=== PATIENT | male | born 1965 | race Caucasian/White ===

== ENCOUNTER → 2016-10-20 | Outpatient (CLI) | payer BC ==
[~2016-10-20] VITALS: Ht 182.9 cm; Wt 136.1 kg
[~2016-10-20] MED LIST: NS 1,000 ML IV ONE; PROPOFOL 200 MG/20 ML VIAL As Ordered ONE
--- NOTE | 2016-10-20 10:37 | ROOR ---
Patient Name: Davotne Edwards Procedure Date: 10/20/2016 10:10 AM Date of : 1965 Age: 51 Room: [facility] Gender: Male Note Status: Finalized Procedure: Total Colonoscopy to cecum + Bx. Indications: Screening for colorectal malignant neoplasm Providers: Zeeshan Vuong MD Referring MD: Kelsey Serra NP Requesting Provider: Medicines: Monitored Anesthesia Care Complications: No immediate complications. Procedure: Pre-Anesthesia Assessment: - The heart rate, respiratory rate, oxygen saturations, blood pressure, adequacy of pulmonary ventilation, and response to care were monitored throughout the procedure. The Colonoscope was introduced through the anus and advanced to the cecum, identified by appendiceal orifice and ileocecal valve. The colonoscopy was performed without difficulty. The patient tolerated the procedure well. The quality of the bowel preparation was excellent. Findings: The perianal and digital rectal examinations were normal. Non-bleeding internal hemorrhoids were found during retroflexion. The hemorrhoids were small and Grade I (internal hemorrhoids that do not prolapse). Diffuse mild inflammation characterized by congestion (edema), erosions, granularity, loss of vascularity, scarring and aphthous ulcerations was found in the entire colon. Biopsies were taken with a cold forceps for histology. The exam was otherwise without abnormality on direct and retroflexion views. Impression: - Non-bleeding internal hemorrhoids. - Diffuse mild inflammation was found in the entire examined colon secondary to colitis. Biopsied. - The examination was otherwise normal on direct and retroflexion views. - The exam was otherwise normal to the cecum. Recommendation: - Patient has a contact number available for emergencies. The signs and symptoms of potential delayed complications were discussed with the patient. Return to normal activities tomorrow. Written discharge instructions were provided to the patient. - High fiber diet. - Discharge patient to home. - Continue present medications. - Await pathology results. - Check Portal Online for Path Results.([email or web address] - Return to referring physician. - The findings and recommendations were discussed with the patient's family. Zeeshan Vuong MD Zeeshan Vuong MD 10/20/2016 10:37:21 AM This report has been signed electronically. Number of Addenda: 0 Note Initiated On: 10/20/2016 10:10 AM Estimated Blood Loss: Estimated blood loss: none.
[2016-10-20 10:50] VITALS: BP 137/84
== END | disposition home or self-care (01) ==
LOC: M OPP 08:56
PROVIDERS: ATTEND Internal Medicine Gastroenterology
DX: Z12.11 Encounter for screening for malignant neoplasm of colon (principal); K63.5 Polyp of colon; K52.9 Noninfective gastroenteritis and colitis, unspecified; K64.0 First degree hemorrhoids; R06.83 Snoring; G47.30 Sleep apnea, unspecified; Z87.891 Personal history of nicotine dependence

== ENCOUNTER → 2019-06-19 | Outpatient (CLI) | payer BC ==
--- NOTE | 2019-06-19 16:59 | REP ---
PA and lateral chest: There are no comparisons. The lung patiño are clear. The cardiac size is normal. The jessy, mediastinum, and skeletal structures are unremarkable. Impression: Negative PA and lateral chest. Electronically Signed by Kyler Polo MD 06/19/2019 04:50 P
== END ==
LOC: M ADAMS 16:32
PROVIDERS: ATTEND Physician Assistant
DX: R05 Cough (principal); R50.9 Fever, unspecified